=== PATIENT | male | born 1970 | race Caucasian/White ===

== ENCOUNTER 2020-12-01 15:09 | Emergency (ER) | payer OTHER, SELFPAY ==
--- NOTE | ~2020-12-01 | XR_ITS ---
XR foot RT min 3V 12/01/2020 15:30 INDICATION: Right foot pain PROCEDURE: 4 views right foot COMPARISON: No prior studies for comparison. FINDINGS: Fracture, dislocation or subluxation is not identified. The soft tissues appear within norm al limits. No foreign bodies are identified. IMPRESSION: 1: NO ACUTE BONE OR JOINT ABNORMALITY IDENTIFIED. Reviewed, dictated and finalized at location A.
[2020-12-01 15:21] VITALS: BP 124/77; PULSE 81; RESP 16; TEMP 36.5; O2SAT 100
--- NOTE | 2020-12-01 15:56 | ED.GENADULT ---
HPI - General Adult General Chief complaint: Extremity Injury, Lower Stated complaint: Right foot Pain Time Seen by Provider: 12/01/20 15:48 Source: patient and RN notes reviewed Mode of arrival: ambulatory Limitations: no limitations History of Present Illness HPI narrative: Patient presents today complaining of right foot pain, redness, and swelling x2 to 3 days. Denies any injury or trauma. Does report some tingling in his toes while he walks. Currently rates his pain 8/10 and describes the pain as throbbing. Pain is primarily located in the lateral right foot as well as the swelling. States pain is similar to pain he has previously experienced with former gout flares. Has not had a gout flare in 2 years MD complaint: Right foot pain Related Data Allergies Allergy/AdvReac Type Severity Reaction Status Date / Time No Known Allergies Allergy Unverified 12/01/20 15:29 Review of Systems Review of Systems: Narrative: CONSTITUTIONAL: Denies body aches, fever, chills, or sweats. EYES: Denies visual changes, redness, or discharge. ENT: Denies rhinorrhea, congestion, sore throat, or otalgia. CARDIOVASCULAR: Denies chest pain, palpitations, or edema. RESPIRATORY: Denies cough or dyspnea. GASTROINTESTINAL: Denies abdominal pain, nausea, vomiting, or diarrhea. GENITOURINARY: Denies dysuria or hematuria. SKIN: Denies rash, itching, or wounds. MUSCULOSKELETAL: Denies back pain, or myalgia. + Right foot pain, redness, swelling NEUROLOGIC: Denies headache, numbness, tingling, or weakness. PSYCH: Denies depression or anxiety. [facility] Past Medical History Medical History (Updated 12/01/20 @ 16:01 by Darcie Rosenthal, [facility], ) History of gout Exam Narrative: Exam Narrative: GENERAL: Well-appearing, well-nourished, and in no acute distress. HEAD: Normocephalic, atraumatic. EYES: EOMI. No redness or drainage. Conjunctivae normal. ENT: Mucous membranes pink and moist. NECK: Normal AROM. CHEST: No respiratory distress. EXTREMITIES: Right foot: Mild to moderate erythema and edema to the lateral half of the foot with tenderness to the same. Distal sensation intact. Capillary refill normal. Pedal pulse normal. Full range of motion of the ankle and all toes no tenderness to the ankle. SKIN: Warm, dry, no rash. Capillary refill normal. Normal skin turgor. NEURO: No focal deficits. Alert and oriented x3. Gait steady. PSYCH: Normal affect. No signs of depression or anxiety. Course Vital Signs Vital signs: Vital Signs Temperature 97.7 F 12/01/20 15:21 Pulse Rate 81 12/01/20 15:21 Respiratory Rate 16 12/01/20 15:21 Blood Pressure 124/77 12/01/20 15:21 Pulse Oximetry 100 12/01/20 15:21 Temperature 97.7 F 12/01/20 15:21 Pulse Rate 81 12/01/20 15:21 Respiratory Rate 16 12/01/20 15:21 Blood Pressure 124/77 12/01/20 15:21 Pulse Oximetry 100 12/01/20 15:21 Reviewed. Pt has been instructed to follow up with his PCP regarding his elevated blood pressure today. Medical Decision Making Differential Diagnosis Differential Diagnosis: Gout, cellulitis, DVT Vital Signs Vital Signs: Vital Signs Temperature 97.7 F 12/01/20 15:21 Pulse Rate 81 12/01/20 15:21 Respiratory Rate 16 12/01/20 15:21 Blood Pressure 124/77 12/01/20 15:21 Pulse Oximetry 100 12/01/20 15:21 Temperature 97.7 F 12/01/20 15:21 Pulse Rate 81 12/01/20 15:21 Respiratory Rate 16 12/01/20 15:21 Blood Pressure 124/77 12/01/20 15:21 Pulse Oximetry 100 12/01/20 15:21 Critical Care Time Critical Care Time Critical Care Time: No Discharge Plan Discharge Clinical Impression: Gout Qualifiers: Gout site: foot Gout etiology: unspecified cause Chronicity: acute Laterality: right Qualified Code(s): M10.9 - Gout, unspecified Patient Disposition: Home, Self-Care Condition: Stable Instructions: Gout (ED) Additional Instructions: Your symptoms are likely due to gout. Please take al
== END 2020-12-01 16:04 | disposition home or self-care (01) ==
PROVIDERS: Emergency Provider Nurse Practitioner
DX: M10.9 Gout, unspecified (principal)
CPT/HCPCS: 73630; 99213; G0463

== ENCOUNTER 2021-01-18 10:52 | Emergency (ER) | payer OTHER, SELFPAY ==
[2021-01-18 11:17] VITALS: BP 113/76; PULSE 80; RESP 16; TEMP 36.2; O2SAT 99
--- NOTE | 2021-01-18 12:23 | ED.EXTPRO ---
HPI - Extremity Problem General Chief complaint: Extremity Problem,Nontraumatic Stated complaint: Gout Time Seen by Provider: 01/18/21 12:23 Source: patient Mode of arrival: ambulatory Limitations: no limitations History of Present Illness HPI Narrative: Michael Palomino is a 50 yo male with no PMH [facility] recurrence of what he believes to be gout in his left foot he has pain on the lateral side of his foot that runs underneath his foot and is foot in general is swollen but there is no involvement of the metatarsals jumana his work situation and use of steel toed boots and he works in construction. He has no comorbid comorbidities; rarely drinks Related Data Allergies Allergy/AdvReac Type Severity Reaction Status Date / Time No Known Allergies Allergy Unverified 01/18/21 11:19 Review of Systems Review of Systems: CONSTITUTIONAL: Denies fever, chills, sweats. EYES: Denies visual changes, redness, discharge. ENT: Denies rhinorrhea, congestion, sore throat, otalgia. CARDIOVASCULAR: Denies chest pain, palpitations, edema. RESPIRATORY: Denies dyspnea, wheezing, cough GASTROINTESTINAL: Denies abdominal pain, nausea, vomiting, diarrhea. GENITOURINARY: Denies dysuria, hematuria, abnormal discharge SKIN: Denies rash or itching. NEUROLOGIC: Denies numbness, or focal weakness. PSYCHIATRIC: Denies anxiety or depression. Left foot pain on the lateral side and underneath along the plantar fascia PMFSH Past Medical History Medical History History of gout Family History Family History Other No acute medical problems Social History Social History (Updated 01/18/21 @ 12:36 by Izabel Freeman CNP) Smoking status: Never smoker Alcohol intake: current Alcohol use details: Only occasional use Comments At time of signature, I agree with nursing past medical, surgical, social and family history. There is no relevant family history pertinent to the presenting complaint. Exam Narrative: GENERAL: This is a well-nourished, well-developed patient, in mild distress. HEAD: normocephalic, atraumatic. EYES: Sclera clear/white. Vision is grossly intact. EARS: External ears normal, . Hearing grossly intact. NOSE: External nose normal without nasal discharge, nares without redness, no rhinorrhea. THROAT: Mucous membranes moist, NECK: Neck supple, CARDIOVASCULAR: Regular rate and rhythm without murmurs, gallops, or rubs. RESPIRATORY: Clear to auscultation. Breath sounds equal bilaterally. No wheezes, rales, or rhonchi. GASTROINTESTINAL: Abdomen soft, SKIN: warm, intact with no suspicious lesions or rash, good texture and turgor. NEURO: awake, alert, and oriented to person, place and time. There were no obvious focal neurologic abnormalities. Steady gait EXTREMITIES: Left lateral foot pain with swelling that pain extends into the plantar fascia, toes are uninvolved BACK: Nontender without deformity Course Course Emergency Course: Patient comes with left foot pain Discussed gout versus plantar fasciitis because uses of steel toed boots, cushioning, does not eat organ meat or drink excessively; does not have other risk factors; PCP said his uric acid levels are not high enough to start on allopurinol Started on colchicine and prednisone Follow-up with primary care provider Vital Signs Vital signs: Vital Signs Temperature 97.2 F L 01/18/21 11:17 Pulse Rate 80 01/18/21 11:17 Respiratory Rate 16 01/18/21 11:17 Blood Pressure 113/76 01/18/21 11:17 Pulse Oximetry 99 01/18/21 11:17 Temperature 97.2 F L 01/18/21 11:17 Pulse Rate 80 01/18/21 11:17 Respiratory Rate 16 01/18/21 11:17 Blood Pressure 113/76 01/18/21 11:17 Pulse Oximetry 99 01/18/21 11:17 MDM - Extremity (Nontraumatic) Differential Diagnosis Differential diagnosis: Likely gout, cellulitis, lower extremity aj
[2021-01-18] MEDS: predniSONE 20 MG TABLET 60 MG PO (12:48)
== END 2021-01-18 12:45 | disposition home or self-care (01) ==
PROVIDERS: Emergency Provider Nurse Practitioner
DX: M10.9 Gout, unspecified (principal)
CPT/HCPCS: 99213; G0463; J7512